=== PATIENT | male | born 1960 | race Caucasian/White ===

== ENCOUNTER 2016-10-13 04:51 | Emergency (ER) | payer BC ==
[~2016-10-13] VITALS: Ht 175.3 cm; Wt 96.2 kg
[2016-10-13 07:35] VITALS: BP 129/87
== END 2016-10-13 08:01 | disposition home or self-care (01) ==
LOC: ER 04:57
DX: S93.401A Sprain of unspecified ligament of right ankle, initial encounter (principal); W01.0XXA Fall on same level from slipping, tripping and stumbling without subsequent striking against object, initial encounter; Y93.89 Activity, other specified; Y99.8 Other external cause status; Y92.89 Other specified places as the place of occurrence of the external cause
CPT/HCPCS: 73610